=== PATIENT | female | born 1990 ===

== ENCOUNTER → 2020-12-27 09:04 | Outpatient (CLI) | payer OTHER, SELFPAY ==
[2020-12-27 09:40] LABS: COVID19 -Nasal RAPID Negative (Negative)
== END ==
PROVIDERS: Visit Provider Nurse Practitioner
DX: Z20.822 Contact with and (suspected) exposure to COVID-19 (principal); J02.9 Acute pharyngitis, unspecified; R53.83 Other fatigue
CPT/HCPCS: 87635